=== PATIENT | male | born 1995 ===

== ENCOUNTER 2016-11-23 16:28 | Emergency (ER) | payer OTHER ==
[2016-11-23 17:18] VITALS: BP 122/56
--- NOTE | 2016-11-23 17:53 | UC ---
UC General HPI - HPI Summary HPI Summary: yesterday woke up with fatigue and nausea/vomiting. UNABLE TO KEEP ANYTHING DOWN UNTIL TODAY. NO SORE THROAT. NO ABDOMINAL PAIN. NO HEADACHE. NO COUGH. NO EAR ACHE. NO ACHES. ONLY FEVER AND NAUSEA/VOMITING. - History of Current Complaint Chief Complaint: UCGI Stated Complaint: VOMITING,NEEDS WORK NOTE FOR 11/22 Time Seen by Provider: 11/23/16 17:31 Hx Obtained From: Patient Onset/Duration: Sudden Onset, Lasting Days, Still Present Onset Severity: Mild Current Severity: Mild Associated Signs & Symptoms: Positive: Fever, Nausea, Vomiting. Negative: Abdominal Pain, Cough, Chest Pain, Dizziness, Diarrhea, Dysuria, Syncope, SOB, Trauma, Wheezing, Weakness - Allergy/Home Medications Allergies/Adverse Reactions: Allergies Allergy/AdvReac Type Severity Reaction Status Date / Time No Known Allergies Allergy Verified 11/23/16 17:08 Home Medications: Home Medications NK [No Home Medications Reported] 11/23/16 [History Confirmed 11/23/16] PMH/Surg Hx/FS Hx/Imm Hx Previously Healthy: Yes - Surgical History Surgical History: None - Family History Known Family History: Negative: Respiratory Disease - Social History Occupation: Employed Full-time Lives: With Family Alcohol Use: Occasionally Substance Use Type: None Smoking Status (MU): Light Every Day Tobacco Smoker Type: Cigarettes Amount Used/How Often: <1/2 PPD Length of Time of Smoking/Using Tobacco: started age 13 Have You Smoked in the Last Year: Yes Cessation Counseling: Patient Advised to Stop Review of Systems Constitutional: Fever Skin: Negative Eyes: Negative ENT: Negative Respiratory: Negative Cardiovascular: Negative Gastrointestinal: Negative Genitourinary: Negative Motor: Negative Neurovascular: Negative Musculoskeletal: Negative Neurological: Negative Psychological: Negative All Other Systems Reviewed And Are Negative: Yes Physical Exam Triage Information Reviewed: Yes Appearance: No Pain Distress, Well-Nourished, Ill-Appearing - MILD Vital Signs: Initial Vital Signs Temp 99.0 F 11/23/16 17:05 Pulse 60 11/23/16 17:05 Resp 14 11/23/16 17:05 BP 122/56 11/23/16 17:05 Pulse Ox 99 11/23/16 17:05 Vital Signs Reviewed: Yes Eye Exam: Normal Eyes: Positive: Conjunctiva Clear ENT Exam: Normal ENT: Positive: Normal ENT inspection, Hearing grossly normal, Pharynx normal, TMs normal Dental Exam: Normal Neck exam: Normal Respiratory Exam: Normal Respiratory: Positive: Chest non-tender, Lungs clear, Normal breath sounds, No respiratory distress, No accessory muscle use Cardiovascular Exam: Normal Cardiovascular: Positive: RRR, No Murmur, Pulses Normal Abdominal Exam: Normal Abdomen Description: Positive: Nontender, No Organomegaly. Negative: Soft, CVA Tenderness (R), CVA Tenderness (L) Musculoskeletal Exam: Normal Musculoskeletal: Positive: Strength Intact, ROM Intact, No Edema Neurological Exam: Normal Psychological Exam: Normal Skin Exam: Normal Course/Dx - Differential Dx - Multi-Symptom Differential Diagnoses: Metabolic Abnormality Provider Diagnoses: VIRAL SYNDROME. GASTRITIS Discharge - Discharge Plan Condition: Stable Disposition: HOME Patient Education Materials: Acute Nausea and Vomiting (ED), Viral Syndrome (ED ) Forms: *Work Release Referrals: [facility]FERR[facility] [Outside] No Primary Care Phys,NOPCP [Primary Care Provider] -
== END 2016-11-23 17:52 | disposition home or self-care (01) ==
LOC: UCCORT 16:28
DX: B34.9 Viral infection, unspecified (principal); K29.70 Gastritis, unspecified, without bleeding; F17.210 Nicotine dependence, cigarettes, uncomplicated
CPT/HCPCS: 99211; G0463